=== PATIENT | male | born 1955 | race Caucasian/White ===

== ENCOUNTER 2019-04-13 09:51 | Emergency (ER) | payer SELFPAY ==
[2019-04-13] MEDS ORDERED: Pantoprazole 40 MG VIAL ONE (10:20)
[2019-04-13 10:28] LABS: #Basophils 0.1 thou/uL (0.0-0.2); #Eosinphils 0.1 thou/uL (0.0-0.7); #Lymphocytes 2.1 thou/uL (1.20-3.40); #Monocytes 0.8 thou/uL (0.11-0.59); #Neutrophils 10.8 thou/uL (1.40-6.50); %Basophils 0.4 % (0.0-1.0); %Eosinophils 0.6 % (0.0-10.0); %Lymphocytes 15.2 % (21.0-51.0); %Monocytes 5.5 % (0.0-10.0); %Neutrophils 78.3 % (42.0-75.0); Hemoglobin 15.6 g/dL (14.0-18.0); Mean Corpuscular HGB CONC 34.6 g/dL (32.0-36.0); Mean Corpuscular Volume 95.4 fL (78.0-98.0); Mean Platelet Volume 7.6 fL (7.4-10.4); Platelet Count 370 thou/uL (130-400); Red Blood Cell (RBC) Count 4.72 mill/uL (4.70-6.10); White Blood Cell (WBC) Count 13.8 thou/uL (4.8-10.8)
[2019-04-13 10:52] LABS: ALT (SGPT) 10 U/L (8-55); AST (SGOT) 11 U/L (5-34); Albumin 4.3 g/dL (3.4-4.8); Alkaline Phosphatase 89 U/L (40-110); Anion Gap 12 mmol/L (10-20); BUN (Urea Nitrogen) 7 mg/dL (8.4-25.7); Bilirubin, Total 1.7 mg/dL (0.2-1.2); Calc. Creatinine Clearance 0 mL/min (70-130); Calcium 9.2 mg/dL (7.8-10.44); Carbon Dioxide 26 mmol/L (23-31); Chloride 104 mmol/L (98-107); Estimated GFR-MDRD 77; Globulin 2.9 g/dL (2.4-3.5); Glucose 101 mg/dL (80-115); Lipase 21 U/L (8-78); Potassium 3.3 mmol/L (3.5-5.1); Protein, Total 7.2 g/dL (5.8-8.1); Sodium 139 mmol/L (136-145)
--- NOTE | 2019-04-13 11:43 | CT ---
CT of abdomen and pelvis: 04/13/2019 COMPARISON: None HISTORY: Hematochezia TECHNIQUE: Axial CT imaging at 5 mm intervals from the lung bases through the pubic symphysis with IV contrast. Coronal reformatted imaging and sagittal reformatted imaging obtained. FINDINGS: The visualized lung bases are unremarkable. No free intraperitoneal air or fluid is seen. There are clips in the gallbladder fossa consistent with prior cholecystectomy. The liver, spleen, pa ncreas, and right adrenal gland are unremarkable. There is a mass within the left adrenal gland measuring 4.1 x 2.7 x 3.3 cm. This lesion demonstrates foci of relative hypodensity with Hounsfield units suggesting foci of macroscopic fat. Thus, it is favored that this lesion represents an adrenal myelolipoma. No acute renal abnormality is noted. Tiny renal hypodensities are noted, too small to definitively characterize. This includes 3 subcentim eter right-sided cortical lesions measuring up to 7 mm. The lack of oral contrast limits assessment of the bowel. There is a focal area of prominent colonic wall thickening with pericolonic fat stranding within the distal descending colon suggesting a focal area of nonspecific colitis. This involves a segment of the descending colon measuring approximately 8 cm in length. On axial imaging there is severe colonic wall thickening with marked luminal narrowing. No associated extraluminal gas or abscess noted. No evidence for bowel obstruction. Small bilateral fat-containing inguinal hernias are present. There is no lymphadenopathy appreciated within the abdomen/pelvis. The vascular structures appear patent. Celiac axis, superior mesenteric artery, and inferior mesenter ic artery are patent. The imaged osseous structures demonstrate no acute findings. IMPRESSION: 1. Prominent colonic wall thickening with pericolonic fat stranding involving the descending colon may ggesting significant nonspecific colitis. Recommend short-term follow-up with direct visualization via colonoscopy following treatment of the acute symptoms. No evidence for bowel obstruction or free intraperitoneal air. 2. Findings suggesting a left-sided adrenal myelolipoma. Given size, recommend a follow-up CT examina tion in 3-6 months to document stability CODE T
== END 2019-04-13 12:23 | disposition home or self-care (01) ==
LOC: ERS 09:51
DX: K52.9 Noninfective gastroenteritis and colitis, unspecified (principal); K64.4 Residual hemorrhoidal skin tags; F17.220 Nicotine dependence, chewing tobacco, uncomplicated
CPT/HCPCS: 36415; 74177; 80053; 82274; 83690; 85025; 86850; 86900; 86901; 96361; 96374; C9113

== ENCOUNTER 2021-02-04 17:17 | Emergency (ER) | payer SELFPAY ==
[2021-02-04] MEDS ORDERED: Dexamethasone 10 MG/ML VIAL ONE (18:29)
[2021-02-04 20:47] LABS: SARS-CoV-2 NAA Rapid Test DETECTED (NotDetected)
== END 2021-02-04 19:20 | disposition home or self-care (01) ==
LOC: ERS 17:17
DX: U07.1 COVID-19 (principal); F17.220 Nicotine dependence, chewing tobacco, uncomplicated
CPT/HCPCS: 0241U; 96372; 99283; J1100

== ENCOUNTER 2023-12-06 16:26 | Observation (INO) | payer MEDICARE ==
[2023-12-06 19:09] LABS: #Basophils 0.05 10x3/uL (0.0-0.2); %Basophils 0.7 % (0.0-1.0); %Eosinophils 1.9 % (0.0-10.0); %Monocytes 8.2 % (0.0-10.0); %Neutrophils 61.9 % (42.0-75.0); Hematocrit 39.1 % (42.0-52.0); Hemoglobin 13.7 g/dL (14.0-18.0); Mean Corpuscular Hemoglobin 33.8 pg (27.0-31.0); Mean Corpuscular Volume 96.5 fL (78.0-98.0); Platelet Count 325 10x3/uL (130-400); RBC Distribution Width 13.3 % (11.5-14.5); Red Blood Cell (RBC) Count 4.05 mill/uL (4.70-6.10)
[2023-12-06 19:27] LABS: ALT (SGPT) 11 U/L (8-55); AST (SGOT) 13 U/L (5-34); Albumin 3.8 g/dL (3.4-4.8); Alkaline Phosphatase 67 U/L (40-110); Anion Gap 12 mmol/L (10-20); BUN (Urea Nitrogen) 10 mg/dL (8.4-25.7); Calc. Creatinine Clearance 0 mL/min (70-130); Calcium 8.8 mg/dL (7.8-10.44); Carbon Dioxide 25 mmol/L (23-31); Chloride 109 mmol/L (98-107); Estimated GFR 93; Globulin 2.6 g/dL (2.4-3.5); Glucose 86 mg/dL (80-115); Lipase 101 U/L (8-78); Potassium 3.5 mmol/L (3.5-5.1); Protein, Total 6.4 g/dL (5.8-8.1); Sodium 142 mmol/L (136-145)
[2023-12-06 19:32] LABS: Troponin I Less than 0.010 ng/mL (< 0.028)
[2023-12-06] MEDS ORDERED: Aspirin Chewable 81 MG TAB ONE (19:35)
[2023-12-06] MEDS ORDERED: Ondansetron ODT 4 MG TAB PO PRN (20:58)
[2023-12-06] MEDS ORDERED: Ondansetron PF 4 MG/2 ML Vial IVP PRN (20:58)
[2023-12-06] MEDS ORDERED: Nicotine 21 MG PATCH TD PRN (20:58)
[2023-12-06] MEDS ORDERED: Acetaminophen 325 MG TAB PO PRN (20:58)
[2023-12-06 21:53] LABS: Magnesium 2.3 mg/dL (1.6-2.6)
[2023-12-06 23:03] VITALS: BMI 20.6
[2023-12-07] MEDS: Potassium Chloride 20 MEQ TAB PO SCH (00:03)
[2023-12-07] MEDS: Nitroglycerin 2% Ointment 1 INCH/1 GM Packet TOP SCH (00:04)
[2023-12-07 00:11] LABS: Troponin I Less than 0.010 ng/mL (< 0.028)
[2023-12-07 02:03] LABS: Troponin I Less than 0.010 ng/mL (< 0.028)
[2023-12-07 03:55] LABS: #Basophils 0.07 10x3/uL (0.0-0.2); %Basophils 1.4 % (0.0-1.0); %Eosinophils 5.5 % (0.0-10.0); %Lymphocytes 38.7 % (21.0-51.0); %Monocytes 10.8 % (0.0-10.0); %Neutrophils 43.4 % (42.0-75.0); Hematocrit 35.5 % (42.0-52.0); Hemoglobin 12.6 g/dL (14.0-18.0); Mean Corpuscular HGB CONC 35.5 g/dL (32.0-36.0); Mean Corpuscular Hemoglobin 34.3 pg (27.0-31.0); Mean Corpuscular Volume 96.7 fL (78.0-98.0); Mean Platelet Volume 10.1 fL (7.4-10.4); Platelet Count 294 10x3/uL (130-400); RBC Distribution Width 13.5 % (11.5-14.5); Red Blood Cell (RBC) Count 3.67 mill/uL (4.70-6.10)
[2023-12-07 04:45] LABS: Anion Gap 11 mmol/L (10-20); BUN (Urea Nitrogen) 9 mg/dL (8.4-25.7); Calc. Creatinine Clearance 84 mL/min (70-130); Calcium 8.2 mg/dL (7.8-10.44); Carbon Dioxide 24 mmol/L (23-31); Cardiac Risk 2.9 (Less than 4.5); Chloride 111 mmol/L (98-107); Cholesterol 135 mg/dl (< 200 Desired); Estimated GFR 97; Glucose 90 mg/dL (80-115); HDL Cholesterol 46 mg/dL (>60 Neg Risk); LDL Cholesterol, Calculated 73 mg/dL; Potassium 3.5 mmol/L (3.5-5.1); Sodium 142 mmol/L (136-145); Triglycerides 81 mg/dL (Less than 150)
[2023-12-07 04:55] LABS: Hemoglobin A1c 4.8 % (4.0-6.0)
[2023-12-07 08:34] LABS: Amphetamine Not Detected (NotDetected); Barbiturates Screen Not Detected (NotDetected); Benzodiazepine Screen Not Detected (NotDetected); Cocaine Metabolite Screen Not Detected (NotDetected); Methadone Not Detected (NotDetected); Methamphetamine Not Detected (NotDetected); Opiate Screen Not Detected (NotDetected); Oxycodone Screen Not Detected (NotDetected); Phencyclidine (PCP) Not Detected (NotDetected); THC/Cannabinoid Screen Detected (NotDetected); Tricyclic Screen Not Detected (NotDetected)
[2023-12-07] MEDS: Aspirin 325 mg Enteric Coated Tablet PO SCH (09:16)
[2023-12-07] MEDS: Enoxaparin 40 MG (0.4 mL) SYRINGE SC SCH (09:16)
[2023-12-07] MEDS ORDERED: Regadenoson 0.4 MG/5 ML SYRINGE ONE (11:10)
[2023-12-07 16:00] VITALS: BP 117/69; TEMP 98.3
== END 2023-12-07 16:15 | disposition home or self-care (01) ==
LOC: ERS 16:26 → 2SW 20:54
PROVIDERS: ADMIT Internal Medicine; ATTEND Internal Medicine
PROC: B246YZZ Ultrasonography of Right and Left Heart using Other Contrast (ICD-10-PCS; principal; 2023-12-06)
DX: R07.9 Chest pain, unspecified (principal); R42 Dizziness and giddiness; R53.1 Weakness; Z90.89 Acquired absence of other organs; F17.210 Nicotine dependence, cigarettes, uncomplicated; F12.90 Cannabis use, unspecified, uncomplicated; Z79.899 Other long term (current) drug therapy; Z90.49 Acquired absence of other specified parts of digestive tract
CPT/HCPCS: 71045; 78452; 80048; 80053; 80061; 80306; 83036; 83690; 83735; 83880; 84443; 84484 ×3; 85025 ×2; 93005; 93017; 93306; 94760; 99285; A9502; J2785; 36415; 96372; G0378; J1650